=== PATIENT | male | born 1965 | race Caucasian/White ===

== ENCOUNTER → 2018-12-18 09:22 | Outpatient (CLI) | payer BC ==
--- NOTE | 2018-12-24 14:28 | EC ---
PATIENT:DONALD CHAVEZ DATE OF SERVICE: 12/18/18 SEX: M MEDICAL RECORD: [id number] DATE OF : [birth year] [facility] AGE OF PATIENT: 53 ADMISSION DATE: 12/18/18 REFERRING PHYSICIAN: INTERPRETING PHYSICIAN: ERIKA HERBERT MD ECHOCARDIOGRAM REPORT ECHO CHARGES 4 ECHO COMPLETE Date: 12/18/18 CLINICAL DIAGNOSIS: HTN/MURMUR ECHOCARDIOGRAPHIC MEASUREMENTS (adult normal given) AC root (d.<3.7cm) 3.5 cm LV Septum d (<1.2 cm> 1.2 cm Valve Excursion 2.2 cm LV Septum (systole) 1.6 cm Left Atria (s.<4.0cm> 4.9 cm LVPW d(<1.2cm) 1.5 cm RV (d.<2.3cm) 3.7 cm LVPW (sytole) 1.7 cm LV diastole(<5.6CM) 5.6 cm MV E-F(>70mm/sec) cm LV systole 3.7 cm LVOT Diameter 1.9 cm MV exc.(>10mm) 1.2 cm Est.ejection fraction (50-75%) % DOPPLER: LVIT cm/sec A 64.0 cm/sec E 50.0 cm/sec LA cm/sec RVSP 18 mmHg LVOT 117 cm/sec AOP1/2T m/s Asc. Ao 135 cm/sec RVOT 69 cm/sec RA cm/sec PA 105 cm/sec AV Gradient Peak 7.30 mmHg AV Mean 3.80 mmHg AV Area 2.5 cm MV Gradient Peak 2.46 mmHg MV Mean 0.65 mmHg MV Area cm COMMENTS: Shingles Roofer Helper: 2 JYOTI CHATMAN Wildlife Refuge Manager: 3 Dr. Allison TAPE# PACS Pericardial Effusion N DATE OF SERVICE: 12/18/2018 Adequate 2D echo, color flow imaging, spectral Doppler, and M-Mode Borderline LVH. LV internal dimension is normal. Wall motion is normal. EF is greater than or equal to 55%. Aortic valve is tricuspid. No evidence of stenosis by Doppler interrogation. Left atrium is dilated at 4.9 cm. Mitral valve shows no prolapse. Trace MR. Right-sided chambers are grossly normal. Trace TR. ECHOCARDIOGRAM REPORT [id number] DONALD CHAVEZ TRANSINT:[id number] Voice Confirmation ID: [id number] DOCUMENT ID: [id number] ERIKA HERBERT MD at 1428 CC: [id number] DICTATION DATE: 12/19/18 1435 LOSS CONTROL REPRESENTATIVE: 12/19/18 1540 [facility] CLI 12/18/18 [place] [id number]
--- NOTE | 2019-01-01 14:31 | ST ---
PATIENT:DONALD CHAVEZ MEDICAL RECORD: [id number] SEX: M LOCATION:[facility] ORDER #: ADMISSION DATE: 12/18/18 AGE OF PATIENT: 53 REFERRING PHYSICIAN: INTERPRETING PHYSICIAN: MAG HALL MD DATE OF SERVICE: 12/18/2018 PROCEDURE: Nuclear stress test. INDICATION: Angina, hypertension, and hyperlipidemia. He was exercised on standard [place] protocol for 10 minutes achieving 85% max target heart rate response with 27 mCi of sestamibi injected at peak stress, 10 mCi were used previously for rest images. FINDINGS: Gated SPECT reveals preserved ejection fraction at 58% with decreased thickening and brightening throughout the inferior segments. SPECT imaging: Cardiolite was used as myocardial perfusion agent. There is a fixed perfusion defect anteriorly as well as inferiorly. Both these defects are relatively small. They improve with stress showing reversed redistribution. Stress images are normal with homogeneous uptake throughout all segments. Difficult to say whether these are previous small anterior and inferior myocardial infarctions or if this is artifactual. There is definitely no reversible ischemia. OVERALL IMPRESSION: This is a mildly abnormal nuclear stress test. Two perfusion defects exist at rest that are small anteriorly and inferiorly. They improve, stress images normalize. There is homogeneous uptake throughout all the stress images. Definitely no reversible ischemia, ejection fraction preserved at 58%. TRANSINT:[id number] Voice Confirmation ID: [id number] DOCUMENT ID: [id number] MAG HALL MD at 1431 CC: [id number] DICTATION DATE: 12/20/18 1039 AUTO MECHANIC APPRENTICE: 12/21/18 0004 [facility] CLI 12/18/18 [place] [id number]
== END | disposition home or self-care (01) ==
LOC: D.HCCARDIO 09:22
PROVIDERS: ATTEND Internal Medicine Interventional Cardiology
DX: R09.89 Other specified symptoms and signs involving the circulatory and respiratory systems (principal)